=== PATIENT | female | born 1990 | race Caucasian/White ===

== ENCOUNTER 2023-11-13 13:30 | Outpatient (RCR) | payer OTHER | END 2023-11-23 | LOC: WSPT | DX: M54.2 Cervicalgia (principal) ==

== ENCOUNTER 2024-02-12 13:30 | Outpatient (RCR) | payer OTHER | END 2024-02-23 | disposition home or self-care (01) | LOC: WSPT | DX: M54.2 Cervicalgia (principal) ==